=== PATIENT | male | born 1980 | race African-American/Black ===

== ENCOUNTER 2019-02-28 14:40 | Inpatient (IN) | payer MEDICAID ==
[~2019-02-28] VITALS: Ht 182.9 cm; Wt 100.7 kg
--- NOTE | 2019-02-28 14:48 | NUR ---
PATIENT [id number], FOUND AT THE [facility] BATHROOM PASSED OUT, PER EMS PT TOOK METH/ALC BS 125. PATIENT SLEEPING BUT AROUSABLE THROUGH VERBAL/TACTILE STIMULI. NO ACUTE DISTRESS. PATIENT A/O X 3. DENIES ANY PAIN OR DISCOMFORT. VERBALIZED THAT HE WAS JUST DISCHARGED EARLIER FROM ANOTHER HOSPITAL. DR GARCÍA AT BEDSIDE. PATIENT CONNECTED TO MONITOR. WILL CONTINUE TO MONITOR ACCORDINGLY
[2019-02-28 15:02] LABS: BASOPHILS % (AUTO) 0.7 % (0.0-2.0); EOSINOPHILS % (AUTO) 1.2 % (0.0-6.0); HEMATOCRIT 37 % (39-51); HEMOGLOBIN 12.1 g/dL (13.5-17.5); LYMPHOCYTES # (AUTO) 1.1 /CMM (0.8-4.8); LYMPHOCYTES % (AUTO) 21.9 % (20.0-44.0); MEAN CORPUSCULAR HGB CONC 33 g/dl (31.0-36.0); MEAN CORPUSCULAR VOLUME 87 fL (80-96); MONOCYTES # (AUTO) 0.5 /CMM (0.1-1.30); MONOCYTES % (AUTO) 10.9 % (2.0-12.0); NEUTROPHILS # (AUTO) 3.3 /CMM (1.8-8.9); NEUTROPHILS % (AUTO) 65.3 % (43.0-81.0); PLATELET COUNT (AUTO) 185 /CMM (150-450); RED BLOOD CELL COUNT(AUTO) 4.27 MIL/uL (4.5-6.0)
--- NOTE | 2019-02-28 15:09 | NUR ---
PATIENT WHEELED BY [employer] FOR CT. LEFT IN STABLE CONDITION.
[2019-02-28 15:10] LABS: CALCIUM, SERUM 8.9 mg/dL (8.5-10.1); CREATININE 0.9 mg/dL (0.6-1.3); POTASSIUM 3.4 mmol/L (3.5-5.1)
[2019-02-28 15:16] LABS: BILIRUBIN,DIRECT 0.1 mg/dL (0.0-0.2); BILIRUBIN,TOTAL 0.3 mg/dL (0.2-1.0); TOTAL PROTEIN, SERUM 6.5 g/dL (6.4-8.2)
[2019-02-28 15:28] LABS: MAGNESIUM 1.9 mg/dL (1.8-2.4)
[2019-02-28] MEDS ORDERED: POTASSIUM CHLORIDE 20 MEQ TAB.PRT.SR PO ONE ×2 (16:00→18:11)
--- NOTE | 2019-02-28 16:12 | NUR ---
PATIENT REMAINS ASLEEP. AROUSABLE THROUGH VERBAL AND TACTILE STIMULI, PATIENT WOUND WAKE UP BUT WOULD GO BACK TO SLEEP. WILL CONDUCT NURSING SWALLOW EVAL WHEN PATIENT IS MORE AWAKE
--- NOTE | 2019-02-28 17:13 | NUR ---
CALLED HOUSE SUP FOR BED
[2019-02-28] MEDS ORDERED: MAGNESIUM HYDROXIDE 30 ML UDC PO PRN (17:30)
[2019-02-28] MEDS ORDERED: ACETAMINOPHEN 325 MG TABLET PO PRN (17:30)
[2019-02-28] MEDS ORDERED: MAG HYDROX/AL HYDROX/SIMETH 30 ML UDC PO PRN (17:30)
[2019-02-28] MEDS ORDERED: ONDANSETRON HCL/PF 4 MG/2 ML VIAL IVP PRN (17:30)
[2019-02-28] MEDS ORDERED: Z GUARD REMEDY 2 OZ OINT TP PRN (17:30)
--- NOTE | 2019-02-28 18:12 | NUR ---
PT REFUSED CAROTID DUPLEX IMAGING EXAM. ADVISED RN.
[2019-02-28] MEDS ORDERED: ZIPR20CA2 PO (18:54)
[2019-02-28] MEDS ORDERED: BUSP30TA2 PO (18:54)
[2019-02-28] MEDS ORDERED: TRAZ-214 PO (18:54)
--- NOTE | 2019-02-28 19:23 | NUR ---
PATIENT RESTING INSIDE ROOM. NO ACUTE DISTRESS. REPORT GIVEN TO NANCY SERRANO FOR FENG
--- NOTE | 2019-02-28 19:32 | NUR ---
PLACED CALL TO [facility] TO GIVE REPORT BUT PER ELECTRIC MELT OPERATOR, THEY STILL DONE HAVE ANY ROOM ASIGNMENT ON PATIENT AND THAT CHARGE NURSE IS TALKING TO NURSING SERVICE DELIVERY ANALYST. VERBALIZED THAT THEY WILL CALL BACK.
--- NOTE | 2019-02-28 19:36 | NUR ---
Lilia albert in ED - 02/28/19 at 1939 by MAIKEL PLACED ON O2 AT 2LPM VIA NC
--- NOTE | 2019-02-28 20:10 | NUR ---
REPORT GIVEN TO [facility]
[2019-02-28 20:30] VITALS: BP 138/80
--- NOTE | 2019-02-28 20:30 | NUR ---
COMPOSITE LAMINATOR ADMITTING NOTES RECEIVED PATIENT FROM ER & ADMITTED TO ROOM 115-2 W/ DX SYNCOPE & ALCOHOL INTOXICATION UNDER CARE OF DR. DEMPSEY. PATIENT NOTED W/ STEADY GAIT WHEN TRANSFERRING FROM GURNEY TO BED. PATIENT A/A/O X3, ABLE TO ANSWER QUESTIONS & FOLLOW SIMPLE COMMANDS. BREATHING EVEN & UNLABORED, TOLERATING ROOM AIR. DENIES ANY SOB OR DIFFICULTY BREATHING. SINUS RHYTHM W/ HR IN 80S NOTED ON TELEMONITOR. RIGHT AC IV #20 INTACT & PATENT W/ DRESSING CDI, NO SIGNS OF INFILTRATION NOTED. SKIN ASSESSMENT DONE. DENIES ANY PAIN OR DISCOMFORT @ THIS TIME BUT C/O SOME DIZZINESS. INSTRUCTED TO CALL FOR ASSISTANCE WHEN GETTING OUT OF BED. URINAL ALSO PROVIDED. ORIENTED PATIENT TO ROOM & STAFF & SAFETY MEASURES IN PLACE W/ SIDE RAILS UP & BED ALARM ON. CALL LIGHT PLACE WITHIN REACH. ADMITTING ORDERS TO BE CARRIED OUT.
--- NOTE | 2019-02-28 20:50 | NUR ---
pt was transferred to the first floor under acls
[2019-02-28] MEDS: MVI ADULT 10ML VIAL = 1AMP 10 ML in IV NS 0.9% 1,000 ML IV PRN (21:27)
[2019-03-01] VITALS: BP 104/77
[2019-03-01 04:00] VITALS: BP 130/77
[2019-03-01] MEDS: IV NS 0.9% 1,000 ML IV PRN ×2 (05:53→20:50)
[2019-03-01 06:20] LABS: EOSINOPHILS % (AUTO) 3.5 % (0.0-6.0); HEMATOCRIT 35 % (39-51); HEMOGLOBIN 11.9 g/dL (13.5-17.5); LYMPHOCYTES # (AUTO) 1.4 /CMM (0.8-4.8); LYMPHOCYTES % (AUTO) 30.4 % (20.0-44.0); MEAN CORPUSCULAR HGB CONC 34 g/dl (31.0-36.0); MEAN CORPUSCULAR VOLUME 86 fL (80-96); MONOCYTES # (AUTO) 0.5 /CMM (0.1-1.30); MONOCYTES % (AUTO) 10.5 % (2.0-12.0); NEUTROPHILS # (AUTO) 2.5 /CMM (1.8-8.9); NEUTROPHILS % (AUTO) 54.6 % (43.0-81.0); PLATELET COUNT (AUTO) 175 /CMM (150-450); WHITE BLOOD COUNT (AUTO) 4.6 K/uL (4.3-11.0)
[2019-03-01 06:45] LABS: CALCIUM, SERUM 8.4 mg/dL (8.5-10.1); CREATININE 0.8 mg/dL (0.6-1.3); MAGNESIUM 1.7 mg/dL (1.8-2.4); PHOSPHORUS 2.7 mg/dL (2.5-4.9); POTASSIUM 3.8 mmol/L (3.5-5.1)
[2019-03-01 06:58] LABS: THYROID STIMULATING HORMONE 0.94 uIU/mL (0.358-3.74)
--- NOTE | 2019-03-01 07:10 | NUR ---
ACCOUNTING ADVISORY SERVICES MANAGER OPENING NOTES RECEIVED PT LYING ON BED.ALERT/ORIENTED X3.ON TELE HR IS 94 WITH SR.ON ROOM AIR,TOLERATING WELL.NO SOB AND ACUTE DISTRESS NOTED.SKIN IS INTACT.IV LINE SI OMN RIGHT AC G20 WITH NS @125MLS/HR IS RUNNING.SITE IS CLEAN,DRY AND INTACT.NO INFILTRATION NOTED.BED IS IN LOW POSITION AND LOCKED,CALL LIGHT IS WITHIN REACH.WILL CONTINUE TO MONITOR THE PT CLOSELY.
[2019-03-01 08:00] VITALS: BP 127/86
[2019-03-01] MEDS: THIAMINE HCL 100 MG TABLET PO SCH (08:08)
[2019-03-01] MEDS: FOLIC ACID 1 MG TABLET PO SCH (08:08)
[2019-03-01] MEDS: PANTOPRAZOLE 40 MG TABLET.DR PO SCH (08:08)
[2019-03-01] MEDS ORDERED: MVI-12 10ML IV SCH (09:00)
--- NOTE | 2019-03-01 09:29 | NUR ---
OFFICIAL GREETER NOTES IV LINE ON RIGHT AC NOTED WITH NO FLUSHING,DENIES INFILTRATION.INSERTED NEW IV LINE ON LEFT FA G22,GOOD BLOOD RETURN AND NO SELLING NOTED.PT TOLERATED WELL/IV NS @125MLS/HR IS STARTED.
[2019-03-01] MEDS: Magnesium 1GM/D5W 100ML PREMIX 100 ML IV SCH ×2 (10:07→11:13)
[2019-03-01 12:00] VITALS: BP 120/76
--- NOTE | 2019-03-01 12:27 | NUR ---
Social service consult requested by NIKA Long for homelessness. Pt. is a 38 year old male who was admitted to [facility] for syncope after he was found down in a [employer] bathroom floor. SW met with the pt. bedside. Pt. is alert and oriented x 4. Pt. is cooperative and pleasant with SW during the assessment. Mood is congruent. Pt. states he was released from [facility] yesterday after being on a 5150 hold. Pt. is homeless and has been for the past 4 months. Pt. arrived to [place] from [place]. Pt's family is in [place] and [place]. Pt. has been living in the streets and has been getting food from shelters. SW offered pt. alf placement, however pt. declined. Pt. has a psychiatric diagnosis of Schizophrenia and takes Geodon, Buspar and Trazadone. Pt. denies suicidal and homicidal ideations and visual/auditory hallucinations at this time. Pt. states he goes to [facility] for food and showering. SW to give pt. homeless resources upon discharge. No other social service needs are requested at this time. SW is available if needed. VELASQUEZ updated pt's RN regarding pt's discharge plan.
[2019-03-01 16:00] VITALS: BP 128/80
--- NOTE | 2019-03-01 18:34 | NUR ---
BUSINESS ASSISTANT CLOSING NOTES PT IS LYING ON BED WITH IV FLUID IS RUNNING.IV SITE IUS INTACT.NO INFILTRATION NOTED.NO PAIN NOTED.ON NSR.RESPIRATION IS EVEN AND NONLABORED.NO SIGNIFICANT CHANGES NOTED IN THE SHIFT.WILL ENDORSE TO READING TEACHER RN FOR FENG.
[2019-03-01] MEDS: MVI ADULT 10ML VIAL = 1AMP 10 ML in IV NS 0.9% 1,000 ML IV PRN (18:47)
[2019-03-01 20:00] VITALS: BP 127/84
--- NOTE | 2019-03-01 20:00 | NUR ---
HEALTH INFORMATICS INSTRUCTOR OPENING NOTES RECEIVED PT ON BED.ALERT/ORIENTED X3.ON TELE HR IS 77 WITH SR.ON ROOM AIR,TOLERATING WELL.NO SOB AND ACUTE DISTRESS NOTED.SKIN IS INTACT.IVf ON RIGHT AC G20 WITH NS @125MLS/HR IS RUNNING. ALTERNATE WITH IVF ON NS WITH MVI AT 125CC SITE IS CLEAN,DRY AND INTACT.NO INFILTRATION NOTED.BED IS IN LOW POSITION AND LOCKED,CALL LIGHT IS WITHIN REACH.WILL CONTINUE TO MONITOR THE PT CLOSELY.
[2019-03-02] VITALS: BP 126/71
[2019-03-02 04:00] VITALS: BP 128/86
--- NOTE | 2019-03-02 06:50 | NUR ---
supervisor television chassis repair notes pts in bed a/ox3-4 stable no sob no distress noted . pts is for psyche consult -dr coats and cardio consult .pts requesting for assistance with longterm placement.
[2019-03-02 07:04] LABS: BASOPHILS % (AUTO) 0.6 % (0.0-2.0); EOSINOPHILS % (AUTO) 5.4 % (0.0-6.0); HEMATOCRIT 37 % (39-51); HEMOGLOBIN 12.4 g/dL (13.5-17.5); LYMPHOCYTES # (AUTO) 1.3 /CMM (0.8-4.8); LYMPHOCYTES % (AUTO) 27.4 % (20.0-44.0); MEAN CORPUSCULAR HGB CONC 34 g/dl (31.0-36.0); MEAN CORPUSCULAR VOLUME 86 fL (80-96); MONOCYTES # (AUTO) 0.4 /CMM (0.1-1.30); MONOCYTES % (AUTO) 8.5 % (2.0-12.0); NEUTROPHILS # (AUTO) 2.8 /CMM (1.8-8.9); NEUTROPHILS % (AUTO) 58.1 % (43.0-81.0); PLATELET COUNT (AUTO) 179 /CMM (150-450); RED BLOOD CELL COUNT(AUTO) 4.31 MIL/uL (4.5-6.0); WHITE BLOOD COUNT (AUTO) 4.8 K/uL (4.3-11.0)
[2019-03-02] MEDS: PANTOPRAZOLE 40 MG TABLET.DR PO SCH (07:36)
[2019-03-02 07:41] LABS: CALCIUM, SERUM 8.2 mg/dL (8.5-10.1); CREATININE 0.9 mg/dL (0.6-1.3); MAGNESIUM 1.8 mg/dL (1.8-2.4); POTASSIUM 3.9 mmol/L (3.5-5.1)
[2019-03-02 08:00] VITALS: BP 123/75
[2019-03-02] MEDS: FOLIC ACID 1 MG TABLET PO SCH (09:21)
[2019-03-02] MEDS: THIAMINE HCL 100 MG TABLET PO SCH (09:22)
[2019-03-02] MEDS ORDERED: busPIRone HCL 10 MG TABLET PO SCH (10:30)
[2019-03-02] MEDS ORDERED: ZIPRASIDONE 20 MG CAPSULE PO SCH (10:30)
[2019-03-02 12:00] VITALS: BP 120/78
--- NOTE | 2019-03-02 12:45 | NUR ---
SW met with pt. bedside to discuss discharge plan. Pt. declined [facility] placement. Pt. was provided with clothing and TAP card. The following homeless shelters/resources were provided to the pt: [facility] located at [address] ; [facility], [address] [place] ; [facility], [address] ; [facility] Homeless Resource Directory which includes food stamps, transitional housing, showers and hot meals etc; Mental Health clinics such as [facility] ; [facility] ; Health clinics;[facility] and Alcohol treatment centers such as [facility], ; [facility] Substance Abuse Hotline and [facility] . Homeless patient waiver form was signed by the pt. and placed in pt's chart.
[2019-03-02] MEDS ORDERED: busPIRone 5 MG TABLET PO SCH (13:00)
[2019-03-02] MEDS ORDERED: MULT-24 PO (13:01)
[2019-03-02] MEDS ORDERED: Thiamine HCL PO (13:01)
[2019-03-02] MEDS ORDERED: BUSP5TAB3 PO (13:01)
[2019-03-02] MEDS ORDERED: FOLI1TAB16 PO (13:01)
--- NOTE | 2019-03-02 14:15 | NUR ---
NAVY AIRSPACE OFFICER NOTE PATIENT HOMELESS , INFORMATON PROVIDED PER HOSPITAL [facility]. WAIVER SIGNED. IV REMOVED. IV STABLE PATIENT REFUSED VACCINES. TAP CARD GIVEN TO PATIENT WALKED TO STREET . MD AWARE ALL CLEARED FOR D/C INFORMATIOIN GIVEN TO PATIENT.
[2019-03-02] MEDS ORDERED: TRAZODONE 50 MG TABLET PO SCH (22:00)
[2019-03-03] MEDS ORDERED: MULTIVITAMINS,THERAGRAN 1 UDTAB TABLET PO SCH (09:00)
== END 2019-03-02 15:30 | disposition home or self-care (01) | DRG 351 ==
LOC: ER 14:42 → TELE1 19:33
PROVIDERS: ADMIT Registered Nurse; ATTEND Registered Nurse
DX: M62.82 Rhabdomyolysis (principal); F20.0 Paranoid schizophrenia; F10.129 Alcohol abuse with intoxication, unspecified; R55 Syncope and collapse; E66.9 Obesity, unspecified; E87.6 Hypokalemia; Y90.6 Blood alcohol level of 120-199 mg/100 ml; Z59.0 Homelessness; Z68.29 Body mass index [BMI] 29.0-29.9, adult; Z91.19 Patient's noncompliance with other medical treatment and regimen; D64.9 Anemia, unspecified; F15.90 Other stimulant use, unspecified, uncomplicated
CPT/HCPCS: 36415; 70450-TC; 71045-TC; 72125-TC; 80048-TC; 80061-TC; 80076-TC; 82550-TC; 83735-TC; 84100-TC; 84443-TC; 85025-TC; 87081-TC; 93307-TC; 93880-TC; 97116-TC; 97530-TC; G0378; G0480; J3475; J7030